=== PATIENT | female | born 1990 | race Caucasian/White ===

== ENCOUNTER 2017-05-28 12:01 | Emergency (ER) | payer MEDICAID ==
[~2017-05-28] VITALS: Ht 162.6 cm; Wt 74.8 kg
[~2017-05-28 12:01] MED LIST: PREN29TA PO
[2017-05-28] MEDS ORDERED: MACR100C2 PO (12:45)
--- NOTE | 2017-05-28 12:45 | PD ---
HPI Chief Complaint Urinary tract infection, transferred from [place] emergency department due to problems auscultating the baby's heart rate Date Seen: May 28, 2017 Time Seen: 12:41 Travel History International Travel<30 Days: No Contact w/Intl Traveler<30Days: No Known Affected Area: No History of Present Illness HPI 27-year-old who is at 22 weeks and 2 days comes in initially to the [facility] emergency room symptoms of urinary tract infection. She was seen there and evaluated and told that she does have a urinary tract infection was given 1 dose of cephalexin while in the ED but was sent here as it was difficult to auscultate the heart rate on their equipment. He states that she's had normal movement and denies contractions vaginal bleeding or pain.. Patient's obtains her care and [facility] status post to deliver ultimately in [place] Weeks Gestation: 22 Para: 0 : 2 History Past Medical History Medical History: Denies Significant Hx Obstetric History Obstetric History Miscarriage Past Surgical History Surgical History: No Previous Surgery Family History Family History: Negative Social History Alcohol Use: No Tobacco Use: No Substance Abuse: No Allergies-Medications (Allergen,Severity, Reaction): Coded Allergies: sulfamethoxazole (Verified Allergy, Severe, RASH, 05/28/17) trimethoprim (Verified Allergy, Severe, RASH, 05/28/17) Home Meds Reported Medications Vit-Iron Carbonyl ( Plus Iron 29-1 mg) 29 Mg Iron-1 Mg Tab, 1 TAB PO DAILY for Nutritional Supplement, TAB 0 Refills 05/28/17 Review of Systems Except as stated in HPI: all other systems reviewed are Neg Physical Exam Narrative GENERAL: Well-nourished, well-developed patient. SKIN: Warm and dry. HEAD: Normocephalic and atraumatic. EYES: No scleral icterus. No injection or drainage. ENT: No nasal drainage noted. Mucous membranes pink. Airway patent. ABDOMEN/GI: Abdomen soft, non-tender, bowel sounds present, no rebound, no guarding Gravid to [20-] weeks size Fundal Height: [-] GENITOURINARY: Deferred External Genitalia: intact and normal in appearance BUS glands: [-Normal] Cervix: [-] Dilatation: [-] Effacement: [-] Station: [-] Presentation: [-] Membranes: [intact or ruptured] Uterine Contractions: [-] FHT's: Baseline is at 140 and this was followed for approximately 2 minutes Category: [-] Baseline: [-] Reactive: [-] Variability: [-] Decels: [-] EXTREMITIES: No cyanosis or edema. BACK: Nontender without obvious deformity. No CVA tenderness. NEUROLOGICAL: Awake and alert. Motor and sensory grossly within normal limits. Five out of 5 muscle strength in all muscle groups. Normal speech. Data Data Vital Signs Reviewed: Yes [facility] Medical Record Reviewed: Yes Plan 27-year-old G2 P 0 with a urinary tract infection in at 22 weeks Position was given for Macrobid and recommendations for adequate hydration Patient has a follow-up to her OB provider in 2 weeks Diagnosis Diagnosis: Primary Impression: 22 weeks gestation of Additional Impression: Urinary tract infection affecting care of mother in first trimester, antepartum Scripts Nitrofurantoin Monohydrate Macrocrystals (Macrobid) 100 Mg Cap 100 MG PO BID for Infection, #14 CAP 0 Refills Prov: Rosemary Maddox MD 05/28/17 Rosemary Maddox MD May 28, 2017 12:45
== END 2017-05-28 13:44 | disposition home or self-care (01) ==
LOC: HOBED 12:01
DX: O23.41 Unspecified infection of urinary tract in pregnancy, first trimester (principal); Z3A.22 22 weeks gestation of pregnancy
CPT/HCPCS: 81001; 99281; 99285